=== PATIENT | female | born 1980 | race Two or more races ===

== ENCOUNTER 2019-06-17 23:09 | Emergency (ER) | payer SELFPAY ==
[~2019-06-17] VITALS: Ht 154.9 cm; Wt 71.2 kg
[2019-06-18 03:14] VITALS: BP 126/71
[2019-06-18] MEDS ORDERED: ONDANSETRON HCL 4 MG/2 ML VIAL IM ONE (03:15)
[2019-06-18] MEDS ORDERED: MORPHINE SULFATE 4 MG/ML SYR/VIAL IM ONE (03:15)
[2019-06-18] MEDS ORDERED: ACET-1603 PO (04:47)
== END 2019-06-18 04:53 | disposition home or self-care (01) ==
LOC: ER 23:09
DX: S52.532A Colles' fracture of left radius, initial encounter for closed fracture (principal); S52.612A Displaced fracture of left ulna styloid process, initial encounter for closed fracture; W19.XXXA Unspecified fall, initial encounter; Y93.89 Activity, other specified; Y99.8 Other external cause status; Y92.89 Other specified places as the place of occurrence of the external cause
CPT/HCPCS: 29125; 73110; 96372; 99283; J2270; J2405